=== PATIENT | female | born 1975 | race Caucasian/White ===

== ENCOUNTER 2017-05-01 12:41 | Emergency (ER) | payer BC ==
[~2017-05-01 12:41] MED LIST: ADVIL PO; AMB10 PO; KLONO1 PO; L20 PO; LORTAB10 PO; PR25 PO; TENORETIC1 TAB PO
[2017-07-29] MEDS ORDERED: ASAB PO (11:13)
[2017-07-29] MEDS ORDERED: BEN25 PO (11:13)
[2017-07-29] MEDS ORDERED: NEUR400 PO (11:13)
[2017-07-29] MEDS ORDERED: VALIUM10 MG PO (11:14)
[2017-07-29] MEDS ORDERED: ZANTAC150 MG PO (11:14)
[2017-07-29] MEDS ORDERED: OXYCOD PO (11:14)
== END 2017-05-01 13:20 | disposition home or self-care (01) ==
LOC: ER 12:41
DX: S93.401A Sprain of unspecified ligament of right ankle, initial encounter (principal); I10 Essential (primary) hypertension; K21.9 Gastro-esophageal reflux disease without esophagitis; F32.9 Major depressive disorder, single episode, unspecified; Z79.891 Long term (current) use of opiate analgesic; Z79.899 Other long term (current) drug therapy; W16.512A Jumping or diving into swimming pool striking water surface causing other injury, initial encounter
CPT/HCPCS: 73610-RT; 73630-50; 99283